=== PATIENT | male | born 1995 | race Caucasian/White ===

== ENCOUNTER 2018-08-07 12:53 | Emergency (ER) | payer SELFPAY ==
[~2018-08-07] VITALS: Ht 165.1 cm; Wt 86.4 kg
[2018-08-07 13:03] VITALS: Ht 165.1 cm; Wt 86.4 kg
[2018-08-07] MEDS ORDERED: SOD CHLORIDE 0.9% 1,000 ML IV STA (13:11)
[2018-08-07] MEDS ORDERED: HYDROmorphONE 2 MG/ML SYG IV ONE (13:30)
[2018-08-07] MEDS ORDERED: ONDANSETRON 4 MG INJ IV ONE (13:30)
[2018-08-07] MEDS ORDERED: KETOROLAC 30 MG INJ IV STA (14:07)
[2018-08-07] MEDS ORDERED: IBUP800T48 PO (15:05)
[2018-08-07] MEDS ORDERED: HYDR-4011 PO (15:05)
[2018-08-07 15:14] VITALS: BP 123/60; PULSE 65; RESP 16
--- NOTE | 2018-08-07 15:22 | ERD ---
ER Documentation Chief Complaint Chief Complaint HEAD INJURY DURING SOCCER GAME AFTER GETTING HIT WITH KNEE HPI This is a 22-year-old male with no past medical history that was brought into the emergency department by EMS after he experienced blunt head trauma just prior to arrival. The patient was playing soccer and stated the last thing he remembers is diving to hit the ball. EMS indicated the women's soccer coach stated the patient had hit the left side of his head against another player. He had a brief transient loss of consciousness for roughly 20 seconds. The patient is complaining of a severe headache on the left side and pain over his left cheek. He denies any changes in vision. He is not nauseous. He did not experience any emesis. He states the headache is 10 out of 10 in intensity. He denies any numbness or tingling of his upper or lower extremities. He denies any abdominal pain. ROS All systems reviewed and are negative except as per history of present illness. Medications Home Meds Active Scripts Hydrocodone/Acetaminophen ([place] 5-325 Tablet) 1 Each Tablet, 1 TAB PO Q6H PRN for PAIN, #20 TAB Prov:WILVER MORGAN MD 08/07/18 Ibuprofen* (Motrin*) 800 Mg Tab, 800 MG PO Q6H PRN for PAIN AND OR ELEVATED TEMP, #30 TAB Prov:WILVER MORGAN MD 08/07/18 Allergies Allergies: Coded Allergies: No Known Drug Allergies (Verified Allergy, Unknown, 08/07/18) PMhx/Soc Medical and Surgical Hx: pt denies Medical Hx, pt denies Surgical Hx Smoking Status: Never smoker Physical Exam Vitals Vital Signs Date Temp Pulse Resp B/P (MAP) Pulse Ox O2 O2 Flow FiO2 Time Delivery Rate 08/07/18 97.5 75 17 146/95 96 13:03 (112) Physical Exam Constitutional:Well-developed. Well-nourished. HEENT:Normocephalic. No nasal septal hematoma. No hemotympanum. Tenderness over the left psychometric arc. No tenderness with movement of the extraocular muscles. No subconjunctival hemorrhage. No trismus. No midface mobility. No avulsions or fractures of the teeth.Pupils were equal round reactive to light. Moist mucous membranes.No tonsillar exudates. Contusion over the lateral aspect of the left zygomatic arc Neck: No nuchal rigidity. No lymphadenopathy. Posterior cervical spine t enderness over C3-C4 with no step-offs Respiratory: Not using accessory muscles of respiration.Lungs were clear to auscultation bilaterally. No rhonchi. No rales. No wheezing. No crepitus no ecchymosis no flail chest. Cardiovascular: Regular rate regular rhythm.No murmurs. No rubs were appreciated.S1, S2 normal. Distal pulses are palpable 2+ bilaterally. GI: Abdomen was soft. Nontender. Non Distended. No pulsatile abdominal masses or bruits. No rebound. No guarding. Bowel sounds were present and normal. Muscle skeletal: Full range of motion of both the upper and lower extremities bilaterally.Normal muscle tone.No assymetrical calf tenderness or swelling. Skin: No petechia, no purpura. No lesions on the palms or the soles of the feet. No maculopapular rash. NEURO: Patient was alert, awake, orientated x3.No facial droop. Gait observed and normal with no ataxia.Speech had regular rate and rhythm. No focal neurological deficits. Result Diagram: 08/07/18 1319 08/07/18 1319 Results 24 hrs Laboratory Tests Test 08/07/18 13:19 White Blood Count 5.9 10^3/ul Red Blood Count 5.24 10^6/ul Hemoglobin 15.7 g/dl Hematocrit 45.2 % Mean Corpuscular Volume 86.3 fl Mean Corpuscular Hemoglobin 30.0 pg Mean Corpuscular Hemoglobin Concent 34.7 g/dl Red Cell Distribution Width 11.5 % Platelet Count 230 10^3/UL Mean Platelet Volume 9.6 fl Immature Granulocytes % 0.300 % Neutrophils % 61.4 % Lymphocytes % 27.9 % Monocytes % 7.7 % Eosinophils % 2.4 % Basophils % 0.3 % Nucleated Red Blood Cells % 0.0 /100WBC Immature Granulocytes # 0.020 10^3/ul Neutrophils # 3.6 10^3/ul Lymphocytes # 1.6 10^3/ul Monocytes # 0.5 10^3/ul Eosinophils # 0.1 10^3/ul Basophils # 0.0 10^3/ul Nucleated Red Blood Cells # 0.0 10^3/ul Prothrombin Time 12.2 Sec Prothrombin Time Ratio 1.0 INR International Normalized Ratio 0.89 Activated Partial Thromboplast Time 27.6 Sec Sodium Level 142 mmol/L Potassium Level 4.2 mmol/L Chloride Level 102 mmol/L Carbon Dioxide Level 31 mmol/L Anion Gap 9 Blood Urea Nitrogen 13 mg/dl Creatinine 0.78 mg/dl Est Glomerular Filtrat Rate mL/min > 60 mL/min Glucose Level 94 mg/dl Calcium Level 9.8 mg/dl Total Bilirubin 0.5 mg/dl Direct Bilirubin 0.00 mg/dl Indirect Bilirubin 0.5 mg/dl Aspartate Amino Transf (AST/SGOT) 30 IU/L Alanine Aminotransferase (ALT/SGPT) 29 IU/L Alkaline Phosphatase 95 IU/L Total Protein 7.8 g/dl Albumin 4.6 g/dl Globulin 3.20 g/dl Albumin/Globulin Ratio 1.43 Current Medications Medications Dose Sig/Karthik Start Time Status Last (Trade) Ordered Route PRN Stop Time Admin Dose Reason Admin Sodium 1,000 ml @ Q1H STAT 08/07/18 DC 08/07/18 Chloride 1,000 mls/hr IV 13:11 13:27 08/07/18 14:10 1 mg ONCE ONCE 08/07/18 DC 08/07/18 Hydromorphone IV 13:30 13:27 HCl 08/07/18 13:31 (Dilaudid) Ondansetron 4 mg ONCE ONCE 08/07/18 DC 08/07/18 HCl (Zofran IV 13:30 13:27 Inj) 08/07/18 13:31 Ketorolac 30 mg ONCE STAT 08/07/18 DC 08/07/18 Tromethamine IV 14:07 14:20 (Toradol) 08/07/18 14:09 Procedures/MDM Is a 22-year-old male that presented to the emergency department with blunt head trauma with loss of consciousness. The patient was immediately placed on a radiation monitor continuous pulse oximetry and IV access was established by nursing to. The patient was in a significant amount of discomfort was given intravenous morphine and Zofran for analgesic control. The patient was placed in a c-collar for C-spine immobilization. The patient had a CT scan of his head neck and face. There was no fractures, no intercerebral hemorrhage and no mass- effect. I indicated to the patient I felt his symptoms were result of a concussion and facial contusion. The patient was also given Toradol. His pain improved and he felt comfortable being discharged home. Close head injuries were provided to the patient. The patient was discharged home in fair condition. They were instructed to return to the emergency department at any time if there was any worsening of their condition. The patient stated they would follow up with their PCP in the next 24-48 hours to initiate a suitable medication regimen under the care of their PCP as well as to allow their PCP to monitor any drug reactions. The patient was discharged home with prescriptions after they gave informed consent to the new medication. They were also fully informed by myself on the adverse effects and adverse drug interactions in order to provide adequate safeguards to prevent possible adverse reactions to medications. Departure Diagnosis: Primary Impression: Concussion Encounter type: initial encounter Loss of consciousness presence/duration: with LOC of 30 min or less Qualified Codes: S06.0X1A - Concussion with loss of consciousness of 30 minutes or less, initial encounter Additional Impressions: Closed head injury Encounter type: initial encounter Qualified Codes: S09.90XA - Unspecified injury of head, initial encounter Sprain of cervical neck Encounter type: initial encounter Qualified Codes: S13.9XXA - Sprain of joints and ligaments of unspecified parts of neck, initial encounter Facial contusion Encounter type: initial encounter Qualified Codes: S00.83XA - Contusion of other part of head, initial encounter Condition: Fair Patient Instructions: Concussion, No Wake Up, Facial Contusion, No Wakeup WILVER MORGAN MD Aug 07, 2018 15:22
== END 2018-08-07 15:17 | disposition home or self-care (01) ==
LOC: E/R 12:53
DX: S06.0X1A Concussion with loss of consciousness of 30 minutes or less, initial encounter (principal); S13.9XXA Sprain of joints and ligaments of unspecified parts of neck, initial encounter; S00.83XA Contusion of other part of head, initial encounter; R51 Headache; W50.0XXA Accidental hit or strike by another person, initial encounter; Y92.9 Unspecified place or not applicable
CPT/HCPCS: 70450; 70486; 72125; 80053; 85025; 85610; 85730; J1170; J1885; J2405; J7030; 96374; 96375